=== PATIENT | female | born 1990 | race Caucasian/White ===

== ENCOUNTER → 2016-07-29 | Outpatient (REF) | payer OTHER | LOC: M LAB REF 16:50 | PROVIDERS: ATTEND Family Medicine | DX: Z12.4 Encounter for screening for malignant neoplasm of cervix (principal) ==

== ENCOUNTER 2016-10-09 19:38 | Emergency (ER) | payer OTHER ==
[~2016-10-09] VITALS: Ht 162.6 cm; Wt 59.0 kg
[2016-10-09] MEDS ORDERED: BENA25TA9 PO (19:54)
[2016-10-09] MEDS ORDERED: FAMOTIDINE IV BAG 20 MG in APPROPRIATE DILUENT 1 EA IV ONE (20:15)
[2016-10-09] MEDS ORDERED: NS 500 ML IV ONE (20:15)
[2016-10-09] MEDS ORDERED: methylPREDNISolone INJ 125 MG/2 ML VIAL (J2930) IV ONE (20:15)
[2016-10-09] MEDS ORDERED: PRED20TA PO (21:36)
[2016-10-09] MEDS ORDERED: PEPC1TAB4 PO (21:36)
[2016-10-09 22:00] VITALS: BP 120/58
== END 2016-10-09 22:04 | disposition home or self-care (01) ==
LOC: M ED 20:13
DX: T78.40XA Allergy, unspecified, initial encounter (principal)
CPT/HCPCS: 96365; 96366; 96375; 99283; J2930

== ENCOUNTER → 2016-10-15 | Outpatient (CLI) | payer OTHER ==
[~2016-10-15] MED LIST: BENA25TA9 PO; PEPC1TAB4 PO; PRED20TA PO
[2016-10-15 10:12] LABS: BASO % 0.4 % (0.0-1.0); EOS # 0.2 K/mm3 (0.0-0.50); EOS % 2.7 % (0.0-3.0); LARGE UNSTAINED CELL # 0.2 K/mm3 (0.0-0.4); LARGE UNSTAINED CELL % 2.2 % (0.0-4.0); LYMPH # 3.7 K/mm3 (1.5-6.5); LYMPH % 50.9 % (24.0-44.0); MEAN CORPUSCULAR HGB CONC 33.1 g/dl (32.0-36.5); MEAN CORPUSCULAR VOLUME 90.7 fl (80.0-96.0); MONO # 0.4 K/mm3 (0.0-0.8); MONO % 5.6 % (0.0-5.0); NEUTROPHILS # 2.6 K/mm3 (1.8-7.7); NEUTROPHILS % 38.2 % (36.0-66.0); PLATELET COUNT, AUTOMATED 192 k/mm3 (150-450); WHITE BLOOD COUNT 6.9 K/mm3 (4.0-10.0)
[2016-10-15 10:41] LABS: ALBUMIN/GLOBULIN RATIO 1.33 (1.00-1.93); ALKALINE PHOSPHATASE 53 U/L (45-117); ALT/SGPT 31 U/L (12-78); ANION GAP 7 MEQ/L (8-16); AST/SGOT 11 U/L (15-37); BILIRUBIN,TOTAL 0.6 MG/DL (0.2-1.0); BLOOD UREA NITROGEN 19 MG/DL (7-18); CALCIUM LEVEL 8.7 MG/DL (8.5-10.1); CARBON DIOXIDE LEVEL 30 MEQ/L (21-32); CHLORIDE LEVEL 104 MEQ/L (98-107); CHOLESTEROL LEVEL 159 MG/DL (<200); CREATININE FOR GFR 0.78 MG/DL (0.55-1.02); FREE T4 1.22 NG/DL (0.76-1.46); GLOMERULAR FILTRATION RATE > 60.0 (>60); GLUCOSE, FASTING 81 MG/DL (70-105); POTASSIUM SERUM 3.9 MEQ/L (3.5-5.1); SODIUM LEVEL 141 MEQ/L (136-145); TRIGLYCERIDES LEVEL 96 MG/DL (<150)
== END ==
LOC: M SMT 08:17
PROVIDERS: ATTEND Physician Assistant Medical
DX: Z13.0 Encounter for screening for diseases of the blood and blood-forming organs and certain disorders involving the immune mechanism (principal); Z13.29 Encounter for screening for other suspected endocrine disorder; Z13.220 Encounter for screening for lipoid disorders

== ENCOUNTER 2016-11-02 20:53 | Emergency (ER) | payer OTHER ==
[~2016-11-02] VITALS: Ht 162.6 cm; Wt 54.8 kg
[~2016-11-02 20:53] MED LIST changes: +BENA25TA10 PO; -BENA25TA9 PO
[2016-11-02] MEDS ORDERED: FAMOTIDINE IV BAG 20 MG in APPROPRIATE DILUENT 1 EA IV ONE (21:45)
[2016-11-02] MEDS ORDERED: methylPREDNISolone INJ 125 MG/2 ML VIAL (J2930) IV ONE (21:45)
[2016-11-02] MEDS ORDERED: PEPC1TAB4 PO (21:53)
[2016-11-02] MEDS ORDERED: PRED20TA PO (21:53)
[2016-11-02 22:37] VITALS: BP 111/63
== END 2016-11-02 22:48 | disposition home or self-care (01) ==
LOC: M ED 21:38
DX: T78.40XA Allergy, unspecified, initial encounter (principal)
CPT/HCPCS: 96374; 99283; J2930

== ENCOUNTER → 2016-12-12 | Outpatient (CLI) | payer OTHER ==
[2016-12-12 17:55] LABS: ALBUMIN/GLOBULIN RATIO 1.33 (1.00-1.93); ALKALINE PHOSPHATASE 54 U/L (45-117); ALT/SGPT 18 U/L (12-78); ANION GAP 7 MEQ/L (8-16); AST/SGOT 13 U/L (15-37); BILIRUBIN,TOTAL 0.7 MG/DL (0.2-1.0); BLOOD UREA NITROGEN 15 MG/DL (7-18); CALCIUM LEVEL 8.8 MG/DL (8.5-10.1); CARBON DIOXIDE LEVEL 27 MEQ/L (21-32); CHLORIDE LEVEL 105 MEQ/L (98-107); COMPLEMENT C3 78.2 MG/DL (90-180); COMPLEMENT C4 15.6 MG/DL (10-40); CREATININE FOR GFR 0.81 MG/DL (0.55-1.02); GLOMERULAR FILTRATION RATE > 60.0 (>60); GLUCOSE, FASTING 81 MG/DL (70-105); POTASSIUM SERUM 4.8 MEQ/L (3.5-5.1); SODIUM LEVEL 139 MEQ/L (136-145); THYROID PEROXIDASE ANTIBODY < 28.0 U/ML (<60.0); THYROXINE (T4) 7.9 UG/DL (4.5-12.0)
[2016-12-12 18:10] LABS: BASO % 0.4 % (0.0-1.0); EOS # 0.1 K/mm3 (0.0-0.50); EOS % 1.1 % (0.0-3.0); LYMPH % 33.5 % (24.0-44.0); MEAN CORPUSCULAR HEMOGLOBIN 29.8 pg (27.0-33.0); MEAN CORPUSCULAR HGB CONC 33.4 g/dl (32.0-36.5); MEAN CORPUSCULAR VOLUME 89.2 fl (80.0-96.0); MONO # 0.4 K/mm3 (0.0-0.8); MONO % 7.1 % (0.0-5.0); NEUTROPHILS # 3.1 K/mm3 (1.8-7.7); RED CELL DISTRIBUTION WIDTH 12.9 % (11.5-14.5); WHITE BLOOD COUNT 5.6 K/mm3 (4.0-10.0)
[2016-12-24 00:06] LABS: IGE RECEPTOR ABY 1 8.5 (<10)
== END ==
LOC: M SMT 14:00
PROVIDERS: ATTEND Allergy & Immunology Allergy
DX: L50.1 Idiopathic urticaria (principal)

== ENCOUNTER → 2017-05-19 | Outpatient (REF) | payer OTHER ==
[2017-05-19 14:07] LABS: HEMOGLOBIN 12.3 g/dl (12.0-16.0); MEAN CORPUSCULAR HEMOGLOBIN 29.9 pg (27.0-33.0); MEAN CORPUSCULAR HGB CONC 33.2 g/dl (32.0-36.5); PLATELET COUNT, AUTOMATED 137 10^3/uL (150-450); RED BLOOD COUNT 4.11 10^6/uL (4.00-5.40); RED CELL DISTRIBUTION WIDTH 13.6 % (11.5-14.5); WHITE BLOOD COUNT 7.2 10^3/uL (4.0-10.0)
[2017-05-19 14:09] LABS: POS COUNT POS FLAG
[2017-05-19 14:50] LABS: HCG, SERUM QUANTITATIVE 61869 MIU/ML
[2017-05-19 16:46] LABS: CHLAMYDIA DNA AMPLIFICATION NEGATIVE (NEGATIVE); GC DNA AMPLIFICATION NEGATIVE (NEGATIVE)
[2017-05-20 10:56] LABS: RUBELLA IgG QUALITATIVE IMMUNE (IMMUNE)
[2017-05-20 10:59] LABS: HEPATITIS B SURFACE ANTIGEN NEGATIVE (NEGATIVE)
[2017-05-20 11:24] LABS: HEPATITIS C VIRUS ABY INDEX 0.2 INDEX (<0.8)
[2017-05-20 11:25] LABS: HIV 1&2 SCREEN CENTAUR NEGATIVE (NEGATIVE)
== END ==
LOC: M LAB REF 13:10
DX: O36.80X0 Pregnancy with inconclusive fetal viability, not applicable or unspecified (principal)

== ENCOUNTER → 2017-05-27 | Outpatient (REF) | payer OTHER ==
[2017-05-27 14:03] LABS: HEMATOCRIT 35.1 % (36.0-47.0); HEMOGLOBIN 11.6 g/dl (12.0-16.0); MEAN CORPUSCULAR VOLUME 90.7 fl (80.0-96.0); RED BLOOD COUNT 3.87 10^6/uL (4.00-5.40); RED CELL DISTRIBUTION WIDTH 13.5 % (11.5-14.5); WHITE BLOOD COUNT 6.6 10^3/uL (4.0-10.0)
== END ==
LOC: M LAB REF 13:16
DX: Z34.81 Encounter for supervision of other normal pregnancy, first trimester (principal); Z3A.00 Weeks of gestation of pregnancy not specified
CPT/HCPCS: 85027

== ENCOUNTER → 2017-06-02 | Outpatient (REF) | payer OTHER ==
[2017-06-02 17:21] LABS: PLTBLUE- EDTA FREE CALC 117 K/mm3 (172-450)
[2017-06-02 21:36] LABS: PLTBLUE- EDTA FREE MACHINE 106 10^3/uL (172-450)
== END ==
LOC: M LAB REF 16:46
DX: Z34.81 Encounter for supervision of other normal pregnancy, first trimester (principal)

== ENCOUNTER → 2017-09-15 | Outpatient (CLI) | payer OTHER ==
[2017-09-15 17:16] LABS: HEMATOCRIT 32.4 % (36.0-47.0); HEMOGLOBIN 10.7 g/dl (12.0-15.5); MEAN CORPUSCULAR HEMOGLOBIN 31.5 pg (27.0-33.0); MEAN CORPUSCULAR VOLUME 95.3 fl (80.0-96.0); RED CELL DISTRIBUTION WIDTH 14.1 % (11.5-14.5); WHITE BLOOD COUNT 7.9 10^3/uL (4.0-10.0)
[2017-09-15 17:42] LABS: GLUCOSE CHALLENGE TEST 1 HOUR 95 MG/DL (LESS THAN 140)
== END ==
LOC: M WUC 12:36
DX: Z34.82 Encounter for supervision of other normal pregnancy, second trimester (principal); Z36.89 Encounter for other specified antenatal screening
CPT/HCPCS: 82950

== ENCOUNTER → 2017-10-06 | Outpatient (REF) | payer OTHER ==
[2017-10-06 12:59] LABS: PLTBLUE- EDTA FREE CALC 122 K/mm3 (172-450)
[2017-10-06 13:26] LABS: PLTBLUE- EDTA FREE MACHINE 111 10^3/uL (172-450)
== END ==
LOC: M LAB REF 12:50
DX: D69.6 Thrombocytopenia, unspecified (principal)
CPT/HCPCS: 85049

== ENCOUNTER → 2017-12-01 | Outpatient (REF) | payer OTHER | LOC: M LAB REF 16:34 | DX: Z34.83 Encounter for supervision of other normal pregnancy, third trimester (principal) ==

== ENCOUNTER → 2022-08-25 | Outpatient (CLI) | payer OTHER ==
[~2022-08-25] MED LIST changes: +HYDR-3715 PO; +IBUP80TA PO; -PEPC1TAB4 PO; +PEPC1TAB5 PO; +PERCOCET PO; +PRENTAB9 PO
[2022-08-25 10:32] LABS: BASO % 0.6 % (0.0-1.0); EOS # 0.1 10^3/uL (0.0-0.5); EOS % 1.9 % (0.0-3.0); HEMATOCRIT 37.1 % (36.0-47.0); HEMOGLOBIN 11.8 g/dl (12.0-15.5); LYMPH # 2.3 10^3/uL (1.5-5.0); LYMPH % 41.9 % (24.0-44.0); MEAN CORPUSCULAR HEMOGLOBIN 28.4 pg (27.0-33.0); MEAN CORPUSCULAR HGB CONC 31.8 g/dl (32.0-36.5); MEAN CORPUSCULAR VOLUME 89.4 fl (80.0-96.0); MONO # 0.4 10^3/uL (0.0-0.8); MONO % 6.9 % (2.0-8.0); NEUTROPHILS # 2.6 10^3/uL (1.5-8.5); NEUTROPHILS % 48.5 % (36.0-66.0); RED BLOOD COUNT 4.15 10^6/uL (4.00-5.40); WHITE BLOOD COUNT 5.4 10^3/uL (4.0-10.0)
[2022-08-25 23:07] LABS: FOLLICLE STIMULATING HORMONE 4.4 mIU/ML; LUTEINIZING HORMONE 4.5 mIU/ML; THYROID STIMULATING HORMONE 0.994 uIU/ML (0.55-4.78)
[2022-08-25 23:08] LABS: TOTAL 25(OH) VITAMIN D 17.6 NG/ML (20.0-100.0); TOTAL IRON BINDING CAPACITY 294 UG/DL (250-425)
[2022-08-25 23:09] LABS: ALBUMIN 3.9 G/DL (3.2-5.2); ALKALINE PHOSPHATASE 57 U/L (46-116); ALT/SGPT 14 U/L (7.0-40); AST/SGOT < 8 U/L (<34); BILIRUBIN,TOTAL 0.6 MG/DL (0.3-1.2); BLOOD UREA NITROGEN 14 MG/DL (9-23); CALCIUM LEVEL 8.7 MG/DL (8.5-10.1); CARBON DIOXIDE LEVEL 22 MMOL/L (20-31); CHLORIDE LEVEL 108 MMOL/L (98-107); CHOLESTEROL LEVEL 159 MG/DL (<200); CHOLESTEROL RISK RATIO 3.31 (<5); FOLATE 9.4 NG/ML (>5.4); GLOMERULAR FILTRATION RATE > 60.0 (>60); GLUCOSE, FASTING 89 MG/DL (60-100); HDL CHOLESTEROL 47.9 MG/DL (>40); IRON (FE) 60 UG/DL (50-170); LDL CHOLESTEROL 100.9 MG/DL (<100); NON-HDL-C 111.1 MG/DL; PERCENT SATURATION 20.4 % (13.2-45.0); POTASSIUM SERUM 4.2 MMOL/L (3.5-5.1); SODIUM LEVEL 143 MMOL/L (136-145); TOTAL PROTEIN 7.2 G/DL (5.7-8.2); TRIGLYCERIDES LEVEL 51 MG/DL (<150)
[2022-08-25 23:10] LABS: FREE T4 0.95 NG/DL (0.89-1.76)
[2022-08-25 23:11] LABS: VITAMIN B12 LEVEL 677 PG/ML (211-911)
== END ==
LOC: M LAB 09:42
PROVIDERS: ATTEND Nurse Practitioner Adult Health
DX: R53.83 Other fatigue (principal); Z13.29 Encounter for screening for other suspected endocrine disorder; Z13.220 Encounter for screening for lipoid disorders

== ENCOUNTER → 2023-01-15 | Outpatient (CLI) | payer OTHER ==
[2023-01-15 14:10] LABS: BASO % 0.7 % (0.0-1.0); EOS # 0.1 10^3/uL (0.0-0.5); EOS % 1.8 % (0.0-3.0); HEMATOCRIT 38.3 % (36.0-47.0); HEMOGLOBIN 12.4 g/dl (12.0-15.5); LYMPH # 2.4 10^3/uL (1.5-5.0); LYMPH % 39.8 % (24.0-44.0); MEAN CORPUSCULAR HEMOGLOBIN 29.2 pg (27.0-33.0); MEAN CORPUSCULAR HGB CONC 32.4 g/dl (32.0-36.5); MEAN CORPUSCULAR VOLUME 90.3 fl (80.0-96.0); MONO # 0.5 10^3/uL (0.0-0.8); MONO % 7.4 % (2.0-8.0); NEUTROPHILS # 3.1 10^3/uL (1.5-8.5); RED BLOOD COUNT 4.24 10^6/uL (4.00-5.40); WHITE BLOOD COUNT 6.1 10^3/uL (4.0-10.0)
[2023-01-15 14:25] LABS: ALBUMIN 4.1 G/DL (3.2-5.2); ALKALINE PHOSPHATASE 37 U/L (46-116); ALT/SGPT 16 U/L (7.0-40); AST/SGOT < 8 U/L (<34); BILIRUBIN,TOTAL 1.2 MG/DL (0.3-1.2); BLOOD UREA NITROGEN 14 MG/DL (9-23); CALCIUM LEVEL 9.1 MG/DL (8.5-10.1); CARBON DIOXIDE LEVEL 28 MMOL/L (20-31); CHLORIDE LEVEL 107 MMOL/L (98-107); GLOMERULAR FILTRATION RATE > 60.0 (>60); GLUCOSE, FASTING 68 MG/DL (60-100); IRON (FE) 66 UG/DL (50-170); PERCENT SATURATION 20.5 % (13.2-45.0); POTASSIUM SERUM 4.1 MMOL/L (3.5-5.1); SODIUM LEVEL 138 MMOL/L (136-145); TOTAL IRON BINDING CAPACITY 322 UG/DL (250-425); TOTAL PROTEIN 7.3 G/DL (5.7-8.2)
[2023-01-15 14:27] LABS: FOLATE 19.7 NG/ML (>5.4)
[2023-01-15 14:28] LABS: VITAMIN B12 LEVEL 527 PG/ML (211-911)
== END ==
LOC: M LAB 13:12
PROVIDERS: ATTEND Nurse Practitioner Adult Health
DX: R41.3 Other amnesia (principal)

== ENCOUNTER → 2023-03-17 | Outpatient (CLI) | payer OTHER | LOC: M PLAIMG 09:24 | PROVIDERS: ATTEND Nurse Practitioner Adult Health | DX: R51.9 Headache, unspecified (principal) ==

== ENCOUNTER → 2023-04-30 | Outpatient (CLI) | payer OTHER | LOC: M WHC 11:40 | PROVIDERS: ATTEND Nurse Practitioner Family | DX: N92.6 Irregular menstruation, unspecified (principal); R10.2 Pelvic and perineal pain ==

== ENCOUNTER → 2023-08-04 | Outpatient (CLI) | payer OTHER | LOC: M WHC 11:58 | PROVIDERS: ATTEND Nurse Practitioner Family | DX: N83.201 Unspecified ovarian cyst, right side (principal) ==

== ENCOUNTER 2023-11-04 08:32 | Day surgery (SDC) | payer OTHER ==
[~2023-11-04] VITALS: Ht 160 cm; Wt 61.6 kg
[~2023-11-04 08:32] MED LIST changes: +ACETAMINOPHEN 1000MG 100ML IV BAG As Ordered ONE; +KETOROLAC 60MG 2ML VIAL As Ordered ONE; +LIDOCAINE 2% 100MG/5ML SDV (FOR ANES.) As Ordered ONE; +MIDAZOLAM INJ 2MG/2ML VIAL As Ordered ONE; +ONDANSETRON 4MG 2ML VIAL As Ordered ONE; +ROCURONIUM BROMIDE 50MG/5ML VIAL As Ordered ONE; +SUGAMMADEX SODIUM 500 MG/5 ML VIAL (BRIDION) As Ordered ONE; +fentaNYL 100 MCG/2 ML INJECTION As Ordered ONE; +propofoL 200 MG/20 ML VIAL As Ordered ONE
[2023-11-04 09:03] LABS: HEMATOCRIT 36.7 % (36.0-47.0); MEAN CORPUSCULAR HEMOGLOBIN 29.1 pg (27.0-33.0); MEAN CORPUSCULAR HGB CONC 32.7 g/dl (32.0-36.5); MEAN CORPUSCULAR VOLUME 88.9 fl (80.0-96.0); PLATELET COUNT, AUTOMATED 200 10^3/uL (150-450); RED BLOOD COUNT 4.13 10^6/uL (4.00-5.40)
[2023-11-04] MEDS ORDERED: KETAMINE HCL 200MG/20ML VIAL As Ordered ONE (09:14)
[2023-11-04] MEDS: LR 1,000 ML IV SCH (09:18)
[2023-11-04] MEDS: ceFAZolin SOD 2 GM in IV 1 EA IV ONE (10:05)
[2023-11-04] MEDS ORDERED: ONDANSETRON 4MG 2ML VIAL IV PRN (11:40)
[2023-11-04] MEDS ORDERED: fentaNYL 100 MCG/2 ML INJECTION IV PRN (11:40)
[2023-11-04] MEDS ORDERED: oxyCODONE 5MG TAB PO PRN (11:40)
[2023-11-04] MEDS ORDERED: ePHEDrine SULFATE 25 MG/5 ML(5MG/ML) SYRINGE As Ordered ONE (11:43)
[2023-11-04 13:05] VITALS: BP 110/60; TEMP 97.3; O2SAT 100
[2023-11-04] MEDS ORDERED: PERCOCET 5MG/325MG TAB PO PRN (13:20)
[2023-11-04] MEDS ORDERED: KETOROLAC 30 MG/ML 1ML VIAL IV SCH (14:00)
== END 2023-11-04 13:10 | disposition home or self-care (01) ==
LOC: M SDC 08:32
PROVIDERS: ATTEND Obstetrics & Gynecology
DX: N93.9 Abnormal uterine and vaginal bleeding, unspecified (principal); N72 Inflammatory disease of cervix uteri; N88.8 Other specified noninflammatory disorders of cervix uteri
CPT/HCPCS: 36415; 58571; 81025; 85027; 86850; 86900; 86901; 88307; J0131; J0665; J0690; J1100; J1885; J2250; J2405; J3010; S2900

== ENCOUNTER → 2024-01-28 | Outpatient (REF) | payer OTHER ==
[~2024-01-28] MED LIST changes: -ACETAMINOPHEN 1000MG 100ML IV BAG As Ordered ONE; -KETOROLAC 60MG 2ML VIAL As Ordered ONE; -LIDOCAINE 2% 100MG/5ML SDV (FOR ANES.) As Ordered ONE; -MIDAZOLAM INJ 2MG/2ML VIAL As Ordered ONE; -ONDANSETRON 4MG 2ML VIAL As Ordered ONE; -ROCURONIUM BROMIDE 50MG/5ML VIAL As Ordered ONE; -SUGAMMADEX SODIUM 500 MG/5 ML VIAL (BRIDION) As Ordered ONE; -fentaNYL 100 MCG/2 ML INJECTION As Ordered ONE; -propofoL 200 MG/20 ML VIAL As Ordered ONE
== END ==
LOC: M LAB REF 17:23
PROVIDERS: ATTEND Nurse Practitioner Adult Health
DX: N89.8 Other specified noninflammatory disorders of vagina (principal)

== ENCOUNTER → 2024-08-18 | Outpatient (REF) | payer OTHER | LOC: M LAB REF 17:00 | PROVIDERS: ATTEND Family Medicine | DX: N76.0 Acute vaginitis (principal) ==